=== PATIENT | male | born 1940 | race Caucasian/White ===

== ENCOUNTER 2023-07-20 09:01 | Emergency (ER) | payer MEDICARE, BC, SELFPAY ==
[2023-07-20 09:05] VITALS: BP 164/52; PULSE 56; RESP 16; TEMP 36.8; O2SAT 97
--- NOTE | 2023-07-20 09:15 | DI.CT_ITS ---
Exam(s) CT HEAD CERVICAL SPINE WO EXAM: CT HEAD CERVICAL SPINE WO CLINICAL HISTORY: trauma. TECHNIQUE: Imaging Protocol: Axial computed tomography images with coronal and sagittal reformatted images were created and reviewed COMPARISON: No exams were available for comparison FINDINGS: BRAIN: There are no skull fractures nor fluid in the visualized paranasal sinuses. There is no evidence of intracranial hemorrhage, mass effect, or shift of midline structures. There are no extra-axial fluid collections. The ventricles are not enlarged or shifted and there is no blo od within the ventricular system nor within the basal cisterns. Are areas of abnormal hypodensity in the left periventricular white matter and basal ganglia which ex hibits CSF density and consistent with remote lacunar infarcts. There is no obvious acute territoria l infarct. No evidence of hemorrhage. CERVICAL SPINE: There is no evidence of acute fracture nor listhesis. No significant prevertebral soft tissue swelli ng. There is cystic change in the base of the odontoid which is of degenerative nature.. Calcification i s noted in the transverse ligament. No atlantoaxial subluxation. Multilevel disc space narrowing C5-6 and C6-7 levels. Mild degenerative anterolisthesis of C4 upon C 5 related to facet arthropathy. Multilevel facet arthropathy. There is no significant facet joint malalignment. No significant osseous lesions evident. IMPRESSION: No acute intracranial findings on this noninfused CT scan of the brain.Left-sided nonhemorrhagic lacu radha infarcts noted which do not appear acute. No evidence of cervical spine fracture, malalignment, nor acute compromise of the cervical spinal can al. Multilevel degenerative disc disease and facet arthropathy. Cystic degenerative changes in the odontoid noted but no obvious acute fracture at this level. RADIATION DOSE DELIVERED: 1,565.13mGy.cm Total DLP DATA REPOSITORY: All CT scans at this facility are submitted to the National Radiology Data Registry (NRDR) Dose Index Registry (DIR) with the [employer] ([employer]). RADIATION OPTIMIZATION: All CT scans at this facility use at least one of these dose optimization te chniques: automated exposure control; mA and/or kV adjustment per patient size (includes targeted exa ms where dose is matched to clinical indication); or iterative reconstruction.
--- NOTE | 2023-07-20 09:50 | DI.VRAD_ITS ---
PROCEDURE INFORMATION: Exam: CT Head Without Contrast Exam date and time: 07/20/2023 9:27 AM Age: 82 years old Clinical indication: Injury or trauma; Fall; Blunt trauma (contusions or hematomas); Consciousness not specified TECHNIQUE: Imaging protocol: Computed tomography of the head without contrast. COMPARISON: No relevant prior studies available. FINDINGS: Brain: No acute intracranial hemorrhage.. There are multiple small hypodensities in the left basal ganglia, consistent with remote lacunar infarctions. There is mild diffuse heterogeneity of the white matter attenuation, consistent with chronic white matter ischemic changes. Mild cerebral atrophy Cerebral ventricles: No ventriculomegaly. Paranasal sinuses: Visualized sinuses are unremarkable. No fluid levels. Mastoid air cells: Visualized mastoid air cells are well aerated. Bones/joints: Unremarkable. No acute fracture. Soft tissues: Unremarkable. IMPRESSION: No acute intracranial hemorrhage.. PROCEDURE INFORMATION: Exam: CT Cervical Spine Without Contrast Exam date and time: 07/20/2023 9:27 AM Age: 82 years old Clinical indication: Injury or trauma; Fall; Blunt trauma (contusions or hematomas); Consciousness not specified TECHNIQUE: Imaging protocol: Computed tomography of the cervical spine without contrast. COMPARISON: No relevant prior studies available. FINDINGS: Bones/joints: Large well corticated cystic structures in the dens makes the dens very susceptible to pathologic fracture. Currently no fracture Series 15, image 19. Recommend further evaluation. No acute fracture of the cervical spine. No subluxation or dislocation of the cervical spine. Intervertebral disc space narrowing C5 through C7 may represent degenerative disc disease.. Anterolisthesis of C4 with respect to C5. Anterior osteophyte formation C5 through C7. Posterior osteophyte formation C5 through C7. Degenerative changes in the facets at multiple levels. Degenerative changes at C1/C2. Kyphosis along the cervical spine with the apex at C6. Lungs: Lung apices are normal. Soft tissues: Unremarkable. IMPRESSION: 1. Large well corticated cystic structures in the dens makes the dens very susceptible to pathologic fracture. . Currently no fracture Series 15, image 19. Recommend further evaluation. 2. No acute fracture of the cervical spine. 3. No subluxation or dislocation of the cervical spine. 4. Intervertebral disc space narrowing C5 through C7 may represent degenerative disc disease.. 5. Kyphosis along the cervical spine with the apex at C6. Dictated and Authenticated by: Osvaldo Walker MD. Ordering:SOWMYA Damian MD
[2023-07-20] MEDS: Lidocaine/Epinephri/Tetracaine Topical Gel 3 ML TP (09:52)
--- NOTE | 2023-07-20 11:17 | ED.GENADUL_ITS ---
HPI General Date/Time Provider Initiated Documentation: 07/20/23 09:15 . Limitations to Documentation: no limitations . Information obtained by: patient . HPI Narrative: 82-year-old gentleman without significant past medical history presents for evaluation of head trauma. Just prior to arrival, the patient was going up the steps when he tripped and fell against a door frame. He did hit his head and caused bleeding. There was no loss of consciousness vomiting or visual change. Reports some mild pain in his head, but otherwise no concerns. He does take a baby aspirin daily. Related Data Home Medications Medication Instructions Recorded Confirmed acetaminophen 650 mg 650 mg PO Q12H PRN 07/20/23 07/20/23 tablet,extended release (Arthritis Pain Reliever) aspirin 81 mg capsule 81 mg PO DAILY 07/20/23 07/20/23 ferrous sulfate 325 mg (65 mg 325 mg PO DIRECTED 07/20/23 07/20/23 iron) tablet losartan 50 mg tablet 50 mg PO DAILY 07/20/23 07/20/23 pantoprazole 40 mg tablet,delayed 40 mg PO DAILY 07/20/23 07/20/23 release rosuvastatin 10 mg tablet (Crestor) 10 mg PO DAILY 07/20/23 07/20/23 Allergies Allergy/AdvReac Type Severity Reaction Status Date / Time No Known Allergies Allergy Unverified 07/20/23 09:09 General Stated Complaint: HeadInjury ALEXIS: 3 Exam Narrative Exam Narrative: Review of Systems: All systems reviewed & are unremarkable except as noted in HPI and below Well-developed, no acute distress 3 centimeters laceration over the right parietal scalp with underlying hematoma, galea intact, no appreciable skull deformity Midline cervical spine without tenderness, step-off or deformity PERRL, normal conjunctiva RRR Unlabored respiratory effort Nondistended abdomen Extremities w/o deformity, no cyanosis, no edema No rashes or lesions. no focal neurologic deficits Appropriate mood and affect Course Vital Signs Vital signs: Vital Signs Temperature 36.8 C 07/20/23 09:05 Pulse 56 L 07/20/23 09:05 Respiratory Rate 16 07/20/23 09:05 Blood Pressure 164/52 H 07/20/23 09:05 Pulse Oximetry 97 07/20/23 09:05 Temperature 36.8 C 07/20/23 09:05 Temperature Source Temporal Artery Scan 07/20/23 09:05 Pulse 56 L 07/20/23 09:05 Respiratory Rate 16 07/20/23 09:05 Respiratory Effort Normal, Non-Labored 07/20/23 09:52 Respiratory Depth Normal 07/20/23 09:52 Respiratory Pattern Normal 07/20/23 09:52 Blood Pressure 164/52 H 07/20/23 09:05 Pulse Oximetry 97 07/20/23 09:05 Oxygen Delivery Method Room Air 07/20/23 09:05 Oxygen Flow Rate 0 07/20/23 09:05 Procedures Laceration Laceration 1: Site: scalp Side (If applicable): right Size (cm): 3 Description: linear Local Anesthetic: other anesthetic (LET) Pre-repair: wound explored, irrigated extensively and deep structures intact Skin layer closed with: other (chromic gut) Size (cm): 5-0 Number of sutures: 5 Technique: simple, interrupted Medical Decision Making Emergent evaluation of facial laceration given his age and aspirin use, would consider skull fracture, intracranial bleeding. Will send for head imaging. This sounds like a mechanical fall, and not syncopal. No prodromal symptoms. No other injuries during the event. Head CT reviewed, no intracranial process. C-spine without acute process. Laceration repaired without complication. Wound care instructions discussed with patient and his family. Discharged in good condition. Medical Records Medical records reviewed: Yes I reviewed the patient's medical records. Quality:[facility] Health Related Social Needs: No Data to Display PFSH All Active Problems Laceration of scalp (Acute) Fall (Acute) Social History Smoking/Tobacco Use Status: Never Smoking risk assessment performed?: Yes Alcohol Intake: current Alcohol Intake frequency: 0-2 drinks per day Drug use: Never Substance use type: does not use PAWSS Have you Been Recently Intoxicated or Drunk Within the Last 30 days?: No Have you Ever Experienced Previous Episodes of Alcohol Withdrawal?: No Have you ever Experienced Withdrawal Seizures?: No Have you ever Experienced Delirium Tremens(DT)s?: No Have you ever undergone Alcohol Rehabilitation Treatment (i.e, inpt ot outpatient treatment programs)?: No Have you ever Experienced Blackouts?: No Have you ever Combined Alcohol with other Downers within the last 90 days?: No Have you ever Combined Alcohol with any other Substance of Abuse during the last 90 days?: No Positive Blood Alcohol level on Presentation? [PCS.BAL]: No Evidence of Increased Autonomic Activity (i.e. HR>120, tremor, sweating, agitation, nausea)?: No Result: 0 Discharge Plan Disposition Patient Disposition: Home Condition: Stable Discharge Details Clinical Impression: Fall, Laceration of scalp Primary Care Provider: Shantel,Local ED Provider: Shakir Sloan Home Meds and New Rx's Prescriptions: No Action aspirin 81 mg capsule 81 mg PO DAILY losartan 50 mg tablet 50 mg PO DAILY rosuvastatin [Crestor] 10 mg tablet 10 mg PO DAILY acetaminophen [Arthritis Pain Reliever] 650 mg tablet extended release 650 mg PO Q12H PRN pantoprazole 40 mg tablet,delayed release (DR/EC) 40 mg PO DAILY ferrous sulfate 325 mg (65 mg iron) tablet 325 mg PO DIRECTED Rx Instructions: Pt takes 3 times per week. Discharge Instructions Instructions: Laceration (ED) Additional Instructions: Keep wound clean with soap and water. Pat dry. Do not scrub area. Only use soap and water for cleaning. Can apply topical antibiotic ointment twice daily. Cover with a bandage if wearing a hat. Swelling should improve over the next few days. Can apply an ice pack to help with swelling. You have [address] These will dissolve in about 7 to 10 days and do not need to be removed.
== END 2023-07-20 10:39 | disposition home or self-care (01) ==
PROVIDERS: Emergency Provider Emergency Medicine
DX: S01.01XA Laceration without foreign body of scalp, initial encounter (principal); W22.8XXA Striking against or struck by other objects, initial encounter; Y93.01 Activity, walking, marching and hiking; Y92.018 Other place in single-family (private) house as the place of occurrence of the external cause
CPT/HCPCS: 12001; 99284; 70450; 72125